=== PATIENT | male | born 1960 | race Caucasian/White ===

== ENCOUNTER 2018-12-08 08:46 | Emergency (ER) | payer MEDICAID ==
[~2018-12-08] VITALS: Ht 170.2 cm; Wt 81.6 kg
[~2018-12-08 08:46] MED LIST: AMA100C; CARB100T; CLONPOW23; HYDR-3682; NAPR500T31; OMEPRAZOLE; RISP2TAB44; SERT-160; SIMV40TA96; TRAZEDONE; TRIAMCINOLONE; VENTOLIN
[2018-12-08 08:57] VITALS: BP 143/87
== END 2018-12-08 11:07 | disposition home or self-care (01) ==
LOC: ER 08:46
DX: S46.912A Strain of unspecified muscle, fascia and tendon at shoulder and upper arm level, left arm, initial encounter (principal); M54.2 Cervicalgia; R51 Headache; W19.XXXA Unspecified fall, initial encounter; Y93.01 Activity, walking, marching and hiking; Y92.89 Other specified places as the place of occurrence of the external cause; Y99.8 Other external cause status
CPT/HCPCS: 70450; 72125; 73030; 73070; 94761